=== PATIENT | female | born 1945 | race Caucasian/White ===

== ENCOUNTER → 2017-09-18 | Day surgery (SDC) | payer OTHER, MEDICARE ==
--- NOTE | 2017-09-19 10:29 | PATH ---
Surgical Pathology Report Patient Name: GAURAV KAMARA [facility]. Rec. #: [id number] /Age/Gender: 1945 (Age: 72) / F Account: [id number] Location: [facility] Taken: 09/18/2017 Received: 09/18/2017 Reported: 09/19/2017 Physicians: Lucina Bahena Specimen(s) Received LEFT BREAST CORE BIOPSY AT 10:00 Clinical History Nonpalpable lesion Ultrasound findings: Suspicious 1.6 cm, surgocal site, History of breast carcinoma s/p partial mastectomy Final Diagnosis BREAST, LEFT, 10:00, ULTRASOUND GUIDED CORE BIOPSY: INVASIVE DUCTAL CARCINOMA, POORLY DIFFERENTIATED, AT LEAST 2 MM IN THIS MATERIAL, INVOLVING FIBROADIPOSE TISSUE AND FOCALLY SKELETAL MUSCLE. Comment: Prior history of high-grade carcinoma is noted ([id number]). Findings discussed with Drs. Camara and Gilberto. Breast prognostic markers pending and will be reported as an addendum. Electronically Signed Gaurav Hearn M.D. Gross Description Received in formalin labeled "left 10:00," are fine kate-yellow, cylindrical portions of fibroadipose tissue ranging from 0.8-1.2 cm in length and averaging 0.1 cm in diameter. The specimens are submitted in toto in one cassette. Total formalin fixation time: Approximately 6 hours 09/18/2017 saudi/09/18/2017
== END | disposition home or self-care (01) ==
LOC: JRADUS-SUR 09:30
PROVIDERS: ATTEND Legal Medicine
PROC: 0HBU3ZX Excision of Left Breast, Percutaneous Approach, Diagnostic (ICD-10-PCS; principal; 2017-09-18)
DX: C50.912 Malignant neoplasm of unspecified site of left female breast (principal)
CPT/HCPCS: 19083; 77065-TC; 87899; 88305-TC; A4648

== ENCOUNTER 2019-08-15 18:00 | Inpatient (IN) | payer OTHER, MEDICARE ==
--- NOTE | 2019-08-15 18:26 | PDOC ---
Attending Attestation - Resident Resident Name: BartYasir - HPI HPI: 08/16/19 09:17 Pt presents to the ED for discomfort and difficulty breathing. Patient has end stage breast CA and is currently on hospice. Family is concerned that she is uncomfortable because she has not been offered anything for pain control, only haldol by the hospice. - Physicial Exam PE: 08/16/19 09:21 Agree with resident exam. Patient is lethargic, with snoring respirations, although she does open her eyes voice and nod her head in response to some questions. Large, necrotic open wound on her chest. - Medical Decision Making 08/16/19 09:22 Pt presents to the ED for pain control and respiratory difficulty. Patient has terminal breast CA and is on home hospice. Family understands that she is dying and in her final hours of life and is requesting pain medication to make her more comfortable. Will treat with IV fentanyl and admit for hospice care.
[2019-08-15] MEDS ORDERED: morphine CARPU-JECT 4 MG/1 ML DISP.SYRIN IVPUSH PRN (18:27)
[2019-08-15] MEDS ORDERED: morphine CARPU-JECT 4 MG/1 ML DISP.SYRIN IVPUSH ONE (18:27)
[2019-08-15] MEDS ORDERED: MORPHINE SULFATE 2 MG/ML VIAL ONE (18:27)
[2019-08-15 18:32] VITALS: BP 00/00; PULSE 123; BMI 22.4
[2019-08-15] MEDS ORDERED: FENTANYL INJECTION 500 MCG in DEXTROSE 5%-WATER - 90 ML IVPB SCH ×2 (19:30→19:55)
[2019-08-15] MEDS ORDERED: fentaNYL CITRATE 250 MCG/5 ML VIAL ONE (19:34)
--- NOTE | 2019-08-15 21:22 | PDOC ---
History of Present Illness - General Chief Complaint: Shortness of Breath Stated Complaint: SOB Time Seen by Provider: 08/15/19 18:16 History Source: Patient Exam Limitations: Clinical Condition - History of Present Illness Initial Comments: Gabby Ma is a 74 yo F w a hx of terminal end stage 4 metastatic breast cancer on hospice who is DNR/DNI presents with increased pain and respiratory distress. The family is at bedside and requests that no labs be drawn, no tubes be placed, no compressions, and no interventions other than oxygen and pain control. They state they have brought her here to pass as she appeared too uncomfortable at home and the family could not care for her at the house. They state she does not respond well when she gets morphine, benzo's, or haldol and the family is requesting a different medication to relieve her pain. PCP: Harris shelley Allergies: Codeine Social Hx: Terminal hospice care Advanced directives DNR/DNI Past History - Past Medical History Allergies/Adverse Reactions: Allergies Allergy/AdvReac Type Severity Reaction Status Date / Time codeine Allergy Verified 08/15/19 18:31 Cancer: Yes (Stage IV Metastatic breast cancer(under hospice care)) COPD: No - Psycho Social/Smoking Cessation Hx Smoking History: Never smoked Hx Alcohol Use: No Drug/Substance Use Hx: No Review of Systems - Review of Systems Able to Perform ROS?: No (non-verbal) *Physical Exam - Vital Signs Last Vital Signs Temp Pulse Resp BP Pulse Ox 123 H 30 H 00/00 L 78 L 08/15/19 18:16 08/15/19 18:16 08/15/19 18:16 08/15/19 18:16 - Physical Exam General Appearance: Yes: Severe Distress, Other (Smells of near ) HEENT: positive: Normal ENT Inspection Neck: positive: Supple Respiratory/Chest: positive: Decreased Breath Sounds, Other (There is a massive , necrotic, open lesion on the chest with necrotiz skin. ) Cardiovascular: positive: Tachycardia Vascular Pulses: Dorsalis-Pedis (R): 2+, Doralis-Pedis (L): 2+ Gastrointestinal/Abdominal: positive: Soft Rectal Exam: positive: deferred Lymphatic: positive: Adenopathy Musculoskeletal: positive: Normal Inspection Extremity: positive: Pedal Edema Integumentary: positive: Pale Neurologic: positive: Respond to painful stimul ED Treatment Course - Medications Given in the ED: ED Medications Discontinued Medications Generic Name Dose Route Start Last Admin Trade Name Mary PRN Reason Stop Dose Admin Fentanyl 50 mcg 08/15/19 18:52 08/15/19 19:17 Sublimaze Injection - IVPUSH 08/15/19 18:53 50 mcg ONCE ONE Administration Fentanyl 100 mcg 08/15/19 18:53 08/15/19 20:51 Sublimaze Injection - IVPUSH 08/15/19 18:54 100 mcg PRN ONE Administration Fentanyl 50 mcg 08/15/19 19:53 08/15/19 19:55 Sublimaze Injection - IVPUSH 08/15/19 19:54 50 mcg ONCE ONE Administration Morphine Sulfate 2 mg 08/15/19 18:27 08/15/19 18:33 Morphine Injection - IVPUSH 08/15/19 18:28 2 mg ONCE ONE Administration Medical Decision Making - Medical Decision Making Gabby Ma is a 74 yo F w a hx of terminal end stage 4 metastatic breast cancer on hospice who is DNR/DNI presents with increased pain and respiratory distress. The family is at bedside and requests that no labs be drawn, no tubes be placed, no compressions, and no interventions other than oxygen and pain control. They state they have brought her here to pass as she appeared too uncomfortable at home and the family could not care for her at the house. They state she does not respond well when she gets morphine, benzo's, or haldol and the family is requesting a different medication to relieve her pain. Vital Signs Temp Pulse Resp BP Pulse Ox 123 H 30 H 00/00 L 78 L 08/15/19 18:16 08/15/19 18:16 08/15/19 18:16 08/15/19 18:16 MDM: This patient is here for terminal hospice care and IV analgesia as she is suffering in pain. She will likely not be alive come the morning. Plan: Oxygen, Fentanyl drip, observation, no intensive intervention. Dispo: Med/Surg Discharge - Discharge Information Problems reviewed: Yes Clinical Impression/Diagnosis: Terminal care, Hospice care, Pain, Respiratory distress Condition: Critical - Admission Yes - Follow up/Referral Referrals: Harris Camara [Primary Care Provider] - - Patient Discharge Instructions - Post Discharge Activity
--- NOTE | 2019-08-15 22:32 | PN ---
Teaching Attending Note Name of Resident: Hemanth Springer ATTENDING PHYSICIAN STATEMENT I saw and evaluated the patient. I reviewed the resident's note and discussed the case with the resident. I agree with the resident's findings and plan as documented. SUBJECTIVE: Patient is a 74 year old woman with a PMH of Uterine cancer and Advanced stage 4 metastatic left breast cancer (s/p mastectomy) on Hospice who presents with increased pain and respiratory distress. As per family, patient has DNR/DNI instructions and request that no blood draws for laboratory studies, no tubes be placed, no compressions, and no interventions other than oxygen and pain control. They state they have brought her here to pass as she appeared too uncomfortable at home and the family could not care for her at the house. They state she does not respond well when she gets morphine, benzo's, or haldol and the family is requesting a different medication to relieve her pain. Has FH of breast cancer. Patient is nonverbal and unable to provide any additional information. OBJECTIVE: Poorly responsive Vital Signs Period Temp Pulse Resp BP Sys/Santoro Pulse Ox Last 24 Hr 123 30 00/00 78 HEENT: No Jaundice, eye redness or discharge, PERRLA, Normocephalic, atraumatic. External ears are normal. No nasal discharge. Neck: Supple, nontender. No palpable adenopathy or thyromegaly. No JVD Chest: Good effort. Clear to auscultation and percussion. Heart: Tachycardia. No S3, rub or murmur Abdomen: Not distended, soft, nontender and no HSM. No rebound or guarding. Normal bowel sounds. Ext: Peripheral pulses intact. No leg edema. Skin: Warm and dry. No petechiae, rash or ecchymosis. Neuro: Poorly responsive. Withdraws to noxious stimuli. Psych: Unable to assess. Current Medications Generic Name Dose Route Start Last Admin Trade Name Freq PRN Reason Stop Dose Admin Fentanyl 100 mcg 08/15/19 21:15 Sublimaze Injection - IVPUSH 08/16/19 21:14 Q2H PRN AGITATION Fentanyl 500 mcg/ Dextrose 100 mls @ 5 mls/hr 08/15/19 19:55 08/15/19 19:56 IVPB 25 mcg/hr TITR JEROMY 5 mls/hr Administration 25 MCG/HR Morphine Sulfate 2 mg 08/15/19 18:27 Morphine Injection - IVPUSH ONCE PRN PAIN LEVEL 4 - 6 ASSESSMENT AND PLAN: 1. Advanced metastatic breast cancer and hospice care - Started on IV Fentanyl drip in the ER and will titrate to control pain. Continue comfort measures as per family's request. Consult Hospice care. 2. DVT prophylaxis - Not indicated 3. Advance directives - DNI/DNR
--- NOTE | 2019-08-15 23:47 | HP ---
CHIEF COMPLAINT: Brought in by family for end of life comfort care. PCP: Harris Baker HISTORY OF PRESENT ILLNESS: This is a 74 year old female with PMH significant for HTN, endometrial CA, and breast CA. She was brought to the ER by her family (son and daughter) for end of life comfort care. She was diagnosed with breast CA 2.5 years ago, which metastasized. She initially underwent surgery and chemotherapy, but has been in hospice care for the past 6 months. Over the past few weeks, she has become increasingly unresponsive, and over the past few days she has developed agonal breathing and agitation. As per the family, she has displayed increased agitation after being administered ativan, haloperidol, and morphine. She has also been receiving anti-thrush drops, sips of liquid with no other oral intake , and HCTZ, as well as lasix. ER course was notable for: (1) Started on Fentanyl drip @ 5/HR (2) O2 78% (3) Comfort care order placed Recent Travel: denies PAST MEDICAL HISTORY: See HPI PAST SURGICAL HISTORY: See HPI Social History: Smoking: denies Alcohol: occasional Drugs: denies Allergies codeine Allergy (Verified 08/15/19 18:31) HOME MEDICATIONS: REVIEW OF SYSTEMS CONSTITUTIONAL: Absent: fever, chills, diaphoresis, generalized weakness, malaise, loss of appetite, weight change HEENT: Absent: rhinorrhea, nasal congestion, throat pain, throat swelling, difficulty swallowing, mouth swelling, ear pain, eye pain, visual changes CARDIOVASCULAR: Absent: chest pain, syncope, palpitations, irregular heart rate, lightheadedness , peripheral edema RESPIRATORY: Absent: cough, shortness of breath, dyspnea with exertion, orthopnea, wheezing, stridor, hemoptysis GASTROINTESTINAL: Absent: abdominal pain, abdominal distension, nausea, vomiting, diarrhea, constipation, melena, hematochezia GENITOURINARY: Absent: dysuria, frequency, urgency, hesitancy, hematuria, flank pain, genital pain MUSCULOSKELETAL: Absent: myalgia, arthralgia, joint swelling, back pain, neck pain SKIN: Absent: rash, itching, pallor HEMATOLOGIC/IMMUNOLOGIC: Absent: easy bleeding, easy bruising, lymphadenopathy, frequent infections ENDOCRINE: Absent: unexplained weight gain, unexplained weight loss, heat intolerance, cold intolerance NEUROLOGIC: Absent: headache, focal weakness or paresthesias, dizziness, unsteady gait, seizure, mental status changes, bladder or bowel incontinence PSYCHIATRIC: Absent: anxiety, depression, suicidal or homicidal ideation, hallucinations. PHYSICAL EXAMINATION Vital Signs - 24 hr 08/15/19 18:16 Pulse Rate 123 H Respiratory 30 H Rate Blood Pressure 00/00 L O2 Sat by Pulse 78 L Oximetry (%) GENERAL: AOx0 HEAD: Normal with no signs of trauma. EARS, NOSE, THROAT: Dry mucus membranes LUNGS: Agonal breathing, right sided crackles, decreased breath sounds on the right HEART: Regular rate and rhythm, normal S1 and S2 without murmur, rub or gallop. ABDOMEN: Soft, nontender, not distended LOWER EXTREMITIES: 2+ pulses, no edema SKIN: Large 10x12 inch malodorous, fungating lesion with serous discharge on her left chest ASSESSMENT/PLAN: 74 year old female with PMH significant for HTN, endometrial CA, and breast CA. She was brought to the ER by her family (son and daughter) for end of life comfort care #Pain control - Patient unable to report pain scale, will use RDOS scale to assess pain severity (Respiratory Distress Observation Syndrome) - RDOS score 9/16 ( HR >110 (2) , RR >30 (2), moderate restlessness (1), abdominal breathing (2), accessory muscle use (2)) - Will monitor RDOS and titrate Fentanyl accordingly - Fentanyl drip started @5ml/HR - Will avoid benzos, morphine, haloperidol #Oxygenation - Acute respiratory failure (tachypnic 30, accessory muscle use, O2 78%) - Initially sat at 78 on RA, increased to 86% when placed on NC 2L O2. Increased to 3L O2 #Palliative care - Palliative team consulted - Spiritual care offered to family #DVT - No AC prophylaxis to avoid needle sticks #Disposition - Comfort care only, no compressions, intubation, labs, tubes, only pain control and oxygen ATTENDING PHYSICIAN STATEMENT I saw and evaluated the patient. I reviewed the resident's note and discussed the case with the resident. I agree with the resident's findings and plan as documented. SUBJECTIVE: OBJECTIVE: ASSESSMENT AND PLAN:
--- NOTE | 2019-08-16 01:50 | PDOC ---
*Physical Exam - Vital Signs Last Vital Signs Temp Pulse Resp BP Pulse Ox 123 H 30 H 00/00 L 78 L 08/15/19 18:16 08/15/19 18:16 08/15/19 18:16 08/15/19 18:16 ED Treatment Course - Medications Given in the ED: ED Medications Discontinued Medications Generic Name Dose Route Start Last Admin Trade Name Maritoq PRN Reason Stop Dose Admin Fentanyl 50 mcg 08/15/19 18:52 08/15/19 19:17 Sublimaze Injection - IVPUSH 08/15/19 18:53 50 mcg ONCE ONE Administration Fentanyl 100 mcg 08/15/19 18:53 08/15/19 20:51 Sublimaze Injection - IVPUSH 08/15/19 18:54 100 mcg PRN ONE Administration Fentanyl 50 mcg 08/15/19 19:53 08/15/19 19:55 Sublimaze Injection - IVPUSH 08/15/19 19:54 50 mcg ONCE ONE Administration Morphine Sulfate 2 mg 08/15/19 18:27 08/15/19 18:33 Morphine Injection - IVPUSH 08/15/19 18:28 2 mg ONCE ONE Administration Medical Decision Making - Medical Decision Making 08/16/19 01:47 Called to bedside to evaluate patient. Patient 74F with metastatic cancer on comfort care. Patient apneic, pulseless. Pupils fixed and dilated. Time of 1:37. Primary team notified. Discharge - Discharge Information Problems reviewed: Yes Clinical Impression/Diagnosis: Terminal care, Hospice care, Pain, Respiratory distress Condition: Disposition: - Follow up/Referral - Patient Discharge Instructions - Post Discharge Activity
--- NOTE | 2019-08-16 06:38 | PN ---
Progress Note (short form) - Note Progress Note: ER team notified patient unresponsive at 0137. On examination, pupils fixed and dilated, occulocephalic reflex negative, no breaths oudns heard, no pules palpated, cardiac auscultation revealed no heart sounds. Family was present upon declaration, [facility] contacted.
== END 2019-08-16 01:35 | disposition expired | DRG 597 ==
LOC: JER 18:00 → JERBED 21:31 → OBSVTOIN 23:05
PROVIDERS: ADMIT Internal Medicine; ATTEND Internal Medicine
DX: C50.912 Malignant neoplasm of unspecified site of left female breast (principal); J96.00 Acute respiratory failure, unspecified whether with hypoxia or hypercapnia; Z51.5 Encounter for palliative care; Z66 Do not resuscitate; I10 Essential (primary) hypertension; Z85.42 Personal history of malignant neoplasm of other parts of uterus; N64.89 Other specified disorders of breast
CPT/HCPCS: 99282-25; G0378